=== PATIENT | female | born 1965 | race Caucasian/White ===

== ENCOUNTER → 2017-07-23 | Outpatient (CLI) | payer BC ==
[~2017-07-23] MED LIST: ALBU8.5H12 IH; DIC250 PO; FURO-43 PO; HYDR28OI11 TP; LEVO-3 PO; LOR5/325 PO; NO ROUTINE MEDS
--- NOTE | 2017-07-23 11:01 | EKG ---
FACILITY: [facility] [place] PATIENT NAME: MARY PLAZA : [id number] MR: [id number] V: [id number] EXAM DATE: ORDERING PHYSICIAN: CARMEN MARCUM TECHNOLOGIST: REBECCA Wren Reason : PREOP-LEFT KNEE Blood Pressure : / mmHG Vent. Rate : 074 BPM Atrial Rate : 074 BPM P-R Int : 158 ms QRS Dur : 086 ms QT Int : 382 ms P-R-T Axes : 064 046 047 degrees QTc Int : 424 ms Sinus rhythm Probable left atrial enlargement Poor R wave progression anteriorly Borderline ECG No previous ECGs available Confirmed by TOMAS GRANDE ([id number]) on 07/23/2017 11:31:27 AM Referred By: TRIXIE Confirmed By:TOMAS GRANDE
== END ==
LOC: RESP 10:47
PROVIDERS: ATTEND Orthopaedic Surgery
DX: Z01.812 Encounter for preprocedural laboratory examination (principal); Z01.810 Encounter for preprocedural cardiovascular examination; S83.201A Bucket-handle tear of unspecified meniscus, current injury, left knee, initial encounter; R94.31 Abnormal electrocardiogram [ECG] [EKG]
CPT/HCPCS: 93005

== ENCOUNTER 2017-08-07 00:17 | Day surgery (SDC) | payer BC ==
[2017-08-07] VITALS (8 sets, daily range): BP systolic 106–173; BP diastolic 61–105
[~2017-08-07] VITALS: Ht 161.3 cm; Wt 160.1 kg
[~2017-08-07 00:17] MED LIST changes: +CETI10CA8 PO
[2017-08-07] MEDS ORDERED: CLINDAMYCIN(*) 600 MG/4 ML ADD 600 MG in DEXTROSE 5% 50 ML BAG 50 ML IVPB ONE (06:00)
[2017-08-07] MEDS ORDERED: MIDAZOLAM 2 MG/2 ML VIAL IVP PRN (06:00)
[2017-08-07] MEDS ORDERED: NORMOSOL R SOLN(*) 1000 ML BAG 1,000 ML IV PRN (06:00)
[2017-08-07] MEDS ORDERED: CLINDAMYCIN(*) 900 MG/NS 50 ML 50 ML IVPB ONE ×2 (06:00)
[2017-08-07] MEDS ORDERED: FAMOTIDINE 20 MG TAB PO ONE (06:00)
[2017-08-07] MEDS ORDERED: LIDOCAINE/SOD BICARB 8.4% SYR ID ONE (06:00)
[2017-08-07] MEDS ORDERED: ROPIVACAINE 0.2% 20 ML VIAL ONE (06:28)
[2017-08-07] MEDS ORDERED: APREPITANT 40 MG CAP PO ONE (06:30)
[2017-08-07] MEDS ORDERED: fentaNYL CITR 100 MCG/2 ML AMP ONE ×2 (07:19→08:18)
[2017-08-07] MEDS ORDERED: LABETALOL HCL 100 MG/20ML VIAL ONE (07:45)
[2017-08-07] MEDS ORDERED: OXYC-865 PO (08:23)
[2017-08-07] MEDS ORDERED: ONDANSETRON 4 MG/2 ML VIAL ONE ×2 (08:54→10:34)
[2017-08-07] MEDS ORDERED: PROPOFOL EMUL(*) 10MG/ML 20 ML 180 ML ONE (10:34)
[2017-08-07] MEDS ORDERED: DEXAMETHASONE SOD PHOS 10MG/ML ONE (10:34)
--- NOTE | 2017-08-07 11:38 | OPERATIVE REPORT 1 ---
EVENT DATE: August 07, 2017 SURGEON: Ildefonso Duarte MD ANESTHESIOLOGIST: Leandro Linder MD ANESTHESIA: General LMA anesthesia. SENIOR QUALITY ANALYST: Nura Lanza PA-C PREOPERATIVE DIAGNOSIS Left knee medial and lateral meniscus tears as well as cartilage damage throughout and synovitis. POSTOPERATIVE DIAGNOSIS Left knee medial and lateral meniscus tears as well as cartilage damage throughout and synovitis. PROCEDURE PERFORMED Left knee arthroscopic partial medial meniscectomy, partial lateral meniscectomy , chondroplasty and synovectomy. FINDINGS The patient had torn cartilage throughout her knee itself, but was amenable for the chondroplasty and the partial meniscectomies. ESTIMATED BLOOD LOSS Minimal. DRAINS None. COMPLICATIONS None. IMPLANTS None. SPECIMENS None. TOURNIQUET TIME 9 minutes, which was only up for the first part of the case, but created a venous tourniquet. INDICATIONS AND HISTORY This patient is a 52-year-old female who presented to my clinic for evaluation of left knee pain and irritation going on for some time. She continued to have pain and irritation despite conservative management, and so she wanted to go ahead and get an MRI. An MRI revealed that she did have a medial meniscus tear as well as some cartilage damage throughout the knee, and so I talked to her about the implications of this as well as treatment options. She wanted to go ahead with surgery to try and get some pain relief. I told her there is no guarantee that she gets pain relief, and that it may not relieve all of her pain , and she said she understood that, and after discussion of the risks and benefits, informed consent was obtained at the last clinic visit. DESCRIPTION OF PROCEDURE The patient was brought into the operating room. She and the procedure were both verified. She was placed supine on the operative table and induced and intubated by anesthesia. The left lower extremity was then prepped and draped in the usual fashion and time out was observed, verifying the correct patient and procedure. The standard incisions were made over the anterior aspect of the knee after inflation of the tourniquet. We did try and do an initial diagnostic arthroscopy, and there was a lot of synovitis throughout the knee, and it was starting to bleed, and we did have a venous tourniquet, so therefore the tourniquet was then let down. I then was able to utilize a combination of electrocautery and suction shaver to then debride a lot of the irritated synovial tissue over the front part of the knee, and also to remove the large medial plica and also the lateral plica that was up into the patellofemoral joint. I then was able to go down and inspect the ACL, and the ACL was stable to probe and anterior drawer type test. I then went into the medial compartment, where I was able to see a meniscus tear in the posterior medial aspect of the meniscus. I was able to then trim it back using a combination of a suction shaver and a meniscal biter until it got to a stable base. I then was able to debride the distal femoral condyle as well as the proximal tibia without any difficulty, and was able to clean this up to get it back to a nice stable base. There were a decent amount of arthritic changes associated with this. I then went into the lateral compartment, where there were also some arthritic changes associated with the femoral condyle and the proximal tibia, and I did debride those with a suction shaver and also took off the inner surface of a tear of the meniscus on the straight lateral portion and a little bit of the posterior lateral portion. I then was able to switch the portals, get rid of some of the other irritate tissue and synovitis throughout the the knee itself on both the medial and lateral sides. I also performed a chondroplasty in the patellofemoral joint and then was able to remove all instrumentation, drain the fluid out of the knee , and then close the portal sites with a 4-0 Monocryl, anesthetizing with ropivacaine and then dressing with Steri-Strips, gauze 4x4s and a soft dressing. The patient was then awakened and extubated and transferred to PACU in stable condition. [facility]
== END 2017-08-07 09:24 | disposition home or self-care (01) ==
LOC: OR 00:17
PROVIDERS: ATTEND Orthopaedic Surgery
DX: S83.282A Other tear of lateral meniscus, current injury, left knee, initial encounter (principal); S83.242A Other tear of medial meniscus, current injury, left knee, initial encounter
CPT/HCPCS: 29880; 94667; J1100; J2250; J2405; J2704; J2795; J3010; J3490; J8501